=== PATIENT | male | born 2000 | race Caucasian/White ===

== ENCOUNTER 2022-03-01 19:55 | Emergency (ER) | payer BC, OTHER ==
[2022-03-01 20:02] VITALS: BP 148/85; PULSE 88; RESP 18; TEMP 97.5; BMI 32.9
== END 2022-03-01 21:55 | disposition home or self-care (01) ==
LOC: JERFT 19:55
DX: K64.9 Unspecified hemorrhoids (principal)
CPT/HCPCS: 99281-25

== ENCOUNTER 2023-04-01 22:23 | Emergency (ER) | payer BC ==
[2023-04-01 22:27] VITALS: BP 137/78; PULSE 98; RESP 18; TEMP 97.7; BMI 29.9
[2023-04-01] MEDS ORDERED: KETOROLAC TROMETHAMINE 30 MG/1 ML VIAL IM ONE (23:27)
[2023-04-01] MEDS ORDERED: KETOROLAC TROMETHAMINE 30 MG/1 ML VIAL ONE (23:36)
[2023-04-02 00:26] LABS: EOS % 1.2 % (0-4.5)
[2023-04-02 00:30] LABS: BASO % 0.5 % (0-2.0); HEMATOCRIT 47.7 % (35.4-49); HEMOGLOBIN 16.7 GM/dL (11.7-16.9); LYMPH % 20.3 % (8-40); MCH 30.5 pg (25.7-33.7); MCHC 34.9 g/dl (32.0-35.9); MEAN CELL VOLUME 87.4 fl (80-96); MEAN PLT VOLUME 8.7 fl (7.5-11.1); PLATELET COUNT 261 10^3/uL (134-434); RBC 5.46 M/mm3 (4.00-5.60); RDW 13.2 % (11.9-15.9); WHITE BLOOD COUNT 10.4 K/mm3 (4.0-10.0)
[2023-04-02 00:34] LABS: POTASSIUM 3.9 mmol/L (3.5-5.1)
[2023-04-02 00:35] LABS: CALCIUM 9.9 mg/dL (8.5-10.1)
[2023-04-02 00:36] LABS: BLOOD UREA NITROGEN 15.9 mg/dL (7-18); MAGNESIUM 2.1 mg/dL (1.8-2.4)
[2023-04-02 00:39] LABS: CREATININE 1.1 mg/dL (0.55-1.3)
== END 2023-04-02 02:03 | disposition home or self-care (01) ==
LOC: JER 22:23
PROC: 3E0233Z Introduction of Anti-inflammatory into Muscle, Percutaneous Approach (ICD-10-PCS; principal; 2023-04-01)
DX: R07.81 Pleurodynia (principal); R09.81 Nasal congestion; J02.9 Acute pharyngitis, unspecified; Z20.822 Contact with and (suspected) exposure to COVID-19
CPT/HCPCS: 0241U-QW; 36415; 71046-TC-FY; 80048; 83735; 84484; 85025; 93005; 93010; 99285-25